=== PATIENT | female | born 2000 | race Caucasian/White ===

== ENCOUNTER 2021-02-11 21:11 | Observation (INO) ==
[2021-02-11] MEDS ORDERED: LORazepam 0.5 MG/1 ML VIAL IV STA (21:34)
[2021-02-11] MEDS ORDERED: SODIUM CHLORIDE 0.9% 1000ML 1,000 ML IV ONE (21:34)
[2021-02-11] MEDS ORDERED: KETOROLAC TROMETHAMINE 15 MG/ML VIAL IV STA (21:34)
[2021-02-11] MEDS ORDERED: ERTAPENEM SODIUM 10 ML IV STA (21:34)
[2021-02-11] MEDS ORDERED: ONDANSETRON INJ 2 MG/ML 2 ML VIAL IV STA (21:34)
[2021-02-11] MEDS ORDERED: MoRPHine SULFATE 4 MG/ML 1 ML CARP\\VIAL IV STA (21:34)
--- NOTE | 2021-02-11 21:42 | Emergency Department Note ---
Impression & Plan Acute right flank pain, Pyelonephritis, Failure of outpatient treatment, Anxiety ED Provider Note NAME: HAILEE PEREZ AGE: 20 SEX: F : 2000 ARRIVES VIA: Ambulance INFORMANT: [Patient] ED PROVIDER(S): [Cruz Murrell MD] CHIEF COMPLAINT: Abdominal and flank pain HISTORY OF PRESENT ILLNESS: The patient is a 20-year-old female with history of resistant UTI. She has a history of bladder exstrophy. The patient has been having urinary symptoms for a month. She took Keflex but did not get much better. She has progressed to having flank pain. For 5 days, she has had right flank discomfort. She was seen in the ED early in the morning today and was found to still have a UTI. She was given ceftriaxone and placed on Omnicef. The patient pretty much slept all day. She did not wake up and seemed lethargic to her roommates. The ambulance was called. The patient is now awake. She has tingling in her fingers. She has right flank pain that is an 8 on a scale 1 out of 10. She still has urinary symptoms and burning. There has been no cough, no congestion or shortness of breath. She is not vaccinated against COVID-[address]. [address] of the abdomen pelvis was essentially unremarkable except for bladder thickening, no hydronephrosis. Looking back at her urine culture from the , 3 days ago, E. coli grew, it was resistant to ceftriaxone, Keflex and Omnicef. REVIEW OF SYSTEMS: See HPI for pertinent positives and negatives. A total of ten systems were reviewed and were otherwise negative. PMHx/PSHx: See Below SOCIAL HISTORY: See Below. PHYSICAL EXAM: GENERAL: Patient is in moderate distress, quite anxious and somewhat tearful. HEENT: No acute trauma, normocephalic atraumatic, mucous membranes moist, no nasal congestion, no scleral icterus. NECK: No stridor, no adenopathy, no meningismus, trachea is midline. LUNGS: Clear to auscultation bilaterally, no wheeze, no rhonchi, breath sounds equal. Hyperventilating. HEART: Mildly tachycardic, regular rhythm, subtle systolic murmur. ABDOMEN: Soft, somewhat tender in the right abdomen, bowel sounds positive, no hernias, no peritonitis. EXTREMITIES: No cyanosis or edema, full range of motion of all the joints without pain or difficulty, no signs for acute trauma. NEUROLOGIC: Oriented x 3, no acute motor or sensory deficits, no focal weakness. SKIN: No rash, no jaundice, no diaphoresis. DIFFERENTIAL DIAGNOSIS: Appendicitis, ovarian cyst, ovarian torsion, ectopic , TOA, PID, infections, diverticulitis, UTI, pyelonephritis, failed outpatient treatment, resistant UTI, obstruction, mesenteric ischemia, aortic pathology, inflammatory bowel disease, renal colic, PUD, pancreatitis, biliary pathology, hernia, volvulus, constipation, as well as other pathologies. EMERGENCY DEPARTMENT COURSE/PROCEDURES: MEDICAL DECISION MAKING: There is no leukocytosis or concerning anemia. There is a normal platelet count. No significant electrolyte abnormality or kidney failure. No worrisome liver enzyme elevation. testing was negative. Covid testing was negative. Urine culture from a few days ago grew out a resistant E. coli. The ceftriaxone, Keflex and Omnicef that she had received or been prescribed will not be effective. Patient has a history of UTI. She has had symptoms for over a month. She now has right flank pain and has a somewhat resistant UTI. She appears to have a pyelonephritis. I do think IV antibiotic therapy and hospitalization is required. The patient was given IV saline, she received IV Toradol, IV morphine, IV Ativan and IV Zofran. She was given IV ertapenem. She feels improved. I spoke to the patient and case management. The on-call hospitalist has been consulted. Past Med/Surg History Medical History History of exstrophy of bladder Recurrent UTI Social History Smoking Status: Never smoker Preferred Language: Bulgarian Feels Safe at Home: Yes Allergies Allergies Allergy/AdvReac Type Severity Reaction Status Date / Time ciprofloxacin Allergy Severe Numbness Verified 02/11/21 22:03 latex Allergy Intermediate Rash Verified 02/11/21 22:03 Home Meds Home Medications Medication Instructions Recorded Confirmed ascorbic acid (vitamin C) 300 mg 900 mg PO DAILY 02/10/21 02/11/21 chewable tablet duloxetine 1 tab PO DAILY 02/10/21 02/11/21 ferrous sulfate 325 mg (65 mg 325 mg PO DAILY 02/10/21 02/11/21 iron) tablet (iron) lamotrigine 200 mg tablet 200 mg PO HS 02/10/21 02/11/21 (Lamictal) norethindrone 1.5 mg-ethinyl 1 tab PO HS 02/10/21 02/11/21 estradiol 30 mcg(21)/iron 75 mg(7) tablet (Junel FE 1.5/30 (28)) Previous Rx's Medication Instructions Recorded cefdinir 300 mg capsule 300 mg PO BID 10 Days #20 cap 02/11/21 ondansetron 4 mg disintegrating 4 mg PO Q6H PRN #15 tab 02/11/21 tablet Results & Data (ED) Vital Signs Vital Signs - 24 hr 02/11/21 21:34 02/11/21 22:08 02/11/21 22:16 Temperature 37.4 C Temperature Source Oral Pulse Rate 69 Pulse Rate [Finger] 62 Pulse Rate from SpO2 Sensor 67 Pulse Rhythm [Finger] Regular Respiratory Rate 23 Respiratory Effort / Characteristics Non-Labored Respiratory Depth Normal Respiratory Pattern Regular Blood Pressure 123/81 Blood Pressure [Right Arm] 146/114 H 123/81 Blood Pressure Mean 95 Blood Pressure Mean [Right Arm] 124 95 Blood Pressure Position [Right Arm] Lying Pulse Oximetry 97 96 Oxygen Delivery Method Room Air Sepsis Recent Fever Within 48 Hours Sepsis New/Unexplained Change in Mental Status Sepsis Action Taken by Nursing 02/11/21 22:56 02/11/21 23:25 Temperature 36.7 C Temperature Source Oral Pulse Rate 61 Pulse Rate [Finger] 63 Pulse Rate from SpO2 Sensor Pulse Rhythm [Finger] Respiratory Rate 18 14 Respiratory Effort / Characteristics Non-Labored Respiratory Depth Normal Respiratory Pattern Blood Pressure 123/81 Blood Pressure [Right Arm] 116/87 Blood Pressure Mean 95 Blood Pressure Mean [Right Arm] 96 Blood Pressure Position [Right Arm] Pulse Oximetry 99 98 Oxygen Delivery Method Room Air Room Air Sepsis Recent Fever Within 48 Hours Yes Sepsis New/Unexplained Change in Mental Status N/A Sepsis Action Taken by Nursing No Action Required Home Medications Current Medication List: was personally reviewed by me Laboratory Data Attestation: I reviewed the patient's lab results. Result diagrams: 02/11/21 21:30 02/11/21 21:30 Lab Results 02/11/21 02/11/21 02/11/21 Range/Units 21:30 21:30 21:30 WBC 5.50 (4.8-10.8) K/uL RBC 4.51 (4.2-5.4) M/uL Hgb 13.5 (12.0-16.0) g/dL Hct 40.5 (37-47) % MCV 89.8 (80-100) fL MCH 29.9 (25-34) pg MCHC 33.3 (32-36) g/dL RDW Std Deviation 42.7 (36.4-46.3) fL RDW Coeff of Juan M 13.0 (11.5-14.5) % Plt Count 307 (130-400) K/uL MPV 10.9 H (7.4-10.4) fL Immature Gran % (Auto) 0.2 % Neut % (Auto) 41.3 % Lymph % (Auto) 49.1 % [place] % (Auto) 7.8 % Eos % (Auto) 0.9 % Baso % (Auto) 0.7 % Neut # (Auto) 2.27 (1.4-6.5) K/uL Lymph # (Auto) 2.70 (1.2-3.4) K/uL [place] # (Auto) 0.43 (0.11-0.59) K/uL Eos # (Auto) 0.05 (0-0.5) K/uL Baso # (Auto) 0.04 (0-0.2) K/uL Immature Gran # (Auto) 0.01 (0.00-0.02) K/uL Sodium 141 (136-145) mmol/L Potassium 3.7 (3.5-5.1) mmol/L Chloride 112 H (98-107) mmol/L Carbon Dioxide 24 (21-32) mmol/L Anion Gap 5.0 (3-11) BUN 6 L (7-18) mg/dl Creatinine 0.88 (0.6-1.2) mg/dl Est Cr Clr Drug Dosing Not Reportable Est GFR ( Amer) 108.9 ml/min Est GFR (Non-Af Amer) 93.9 ml/min BUN/Creatinine Ratio 7.1 L (10-20) Glucose 88 (70-99) mg/dl Calcium 9.1 (8.5-10.1) mg/dl Total Bilirubin 0.5 (0.2-1) mg/dl AST 9 L (15-37) U/L ALT 16 (12-78) U/L Alkaline Phosphatase 58 (45-117) U/L Total Protein 7.4 (6.4-8.2) gm/dl Albumin 3.7 (3.4-5.0) gm/dl Globulin 3.7 (2.5-4.0) gm/dl Albumin/Globulin Ratio 1.0 (0.9-2) HCG, Qual Negative (Negative) COVID-19 Eval Order SARS-CoV-2 (PCR) (Negative) 02/11/21 02/11/21 Range/Units 22:21 22:21 WBC (4.8-10.8) K/uL RBC (4.2-5.4) M/uL Hgb (12.0-16.0) g/dL Hct (37-47) % MCV (80-100) fL MCH (25-34) pg MCHC (32-36) g/dL RDW Std Deviation (36.4-46.3) fL RDW Coeff of Juan M (11.5-14.5) % Plt Count (130-400) K/uL MPV (7.4-10.4) fL Immature Gran % (Auto) % Neut % (Auto) % Lymph % (Auto) % [place] % (Auto) % Eos % (Auto) % Baso % (Auto) % Neut # (Auto) (1.4-6.5) K/uL Lymph # (Auto) (1.2-3.4) K/uL [place] # (Auto) (0.11-0.59) K/uL Eos # (Auto) (0-0.5) K/uL Baso # (Auto) (0-0.2) K/uL Immature Gran # (Auto) (0.00-0.02) K/uL Sodium (136-145) mmol/L Potassium (3.5-5.1) mmol/L Chloride (98-107) mmol/L Carbon Dioxide (21-32) mmol/L Anion Gap (3-11) BUN (7-18) mg/dl Creatinine (0.6-1.2) mg/dl Est Cr Clr Drug Dosing Est GFR ( Amer) ml/min Est GFR (Non-Af Amer) ml/min BUN/Creatinine Ratio (10-20) Glucose (70-99) mg/dl Calcium (8.5-10.1) mg/dl Total Bilirubin (0.2-1) mg/dl AST (15-37) U/L ALT (12-78) U/L Alkaline Phosphatase (45-117) U/L Total Protein (6.4-8.2) gm/dl Albumin (3.4-5.0) gm/dl Globulin (2.5-4.0) gm/dl Albumin/Globulin Ratio (0.9-2) HCG, Qual (Negative) COVID-19 Eval Order Covid19 at [facility] SARS-CoV-2 (PCR) NEGATIVE (Negative) Administered Medications Discontinued Medications Ertapenem (Invanz) 10 mls @ 2 mls/min IV NOW STA Stop: 02/11/21 21:38 Last Admin: 02/11/21 22:40 Dose: 2 mls/min Documented by: [id number] Sodium Chloride (Nss 1000ml) 1,000 mls @ 999 mls/hr IV .Q1H1M ONE Stop: 02/11/21 22:34 Last Infusion: 02/11/21 23:18 Dose: 0 mls/hr Documented by: [id number] Admin: 02/11/21 21:43 Dose: 999 mls/hr Documented by: [id number] Lorazepam (Ativan) 0.5 mg in 1 mls @ 1 mls/min IV NOW STA Stop: 02/11/21 21:35 Last Admin: 02/11/21 21:48 Dose: 1 mls/min Documented by: [id number] Ketorolac Tromethamine (Ketorolac Tromethamine 15 Mg/Ml Vial) 15 mg IV NOW STA Stop: 02/11/21 21:35 Last Admin: 02/11/21 21:48 Dose: 15 mg Documented by: [id number] Morphine Sulfate (Morphine Sulfate 4 Mg/Ml 1 Ml Carp\Vial) 4 mg IV NOW STA Stop: 02/11/21 21:35 Last Admin: 02/11/21 21:49 Dose: 4 mg Documented by: [id number] Ondansetron HCl (Ondansetron Inj 2 Mg/Ml 2 Ml Vial) 4 mg IV NOW STA Stop: 02/11/21 21:35 Last Admin: 02/11/21 21:48 Dose: 4 mg Documented by: [id number] Discharge Plan Visit Data Chief Complaint: Abdominal Pain ED Provider: Cruz Murrell Discharge Problem: Acute right flank pain, Pyelonephritis, Failure of outpatient treatment, Anxiety Patient Disposition: Admitted As Inpatient Condition: Fair Forms Stand Alone Forms: [facility] Prescriptions Prescriptions: No Action Vitamin C 300 mg Tablet,Chewable 900 mg PO DAILY RF: 0 norethindrone-e.estradiol-iron [Junel FE 1.5/30 (28)] 1.5 mg-30 mcg (21)/75 mg (7) Tablet 1 tab PO HS RF: 0 lamotrigine [Lamictal] 200 mg Tablet 200 mg PO HS RF: 0 ferrous sulfate [iron] 325 mg (65 mg iron) Tablet 325 mg PO DAILY RF: 0 duloxetine 1 tab PO DAILY RF: 0 cefdinir 300 mg capsule 300 mg PO BID 10 Days Qty: 20 RF: 0 ondansetron 4 mg tablet,disintegrating 4 mg PO Q6H PRN (Reason: nausea and vomiting) Qty: 15 RF: 0 Referrals Referrals: PCP,NO [Physician] -
[2021-02-11 21:51] LABS: Basophils # (auto) 0.04 K/uL (0-0.2); Basophils % (auto) 0.7 %; Eosinophils # (auto) 0.05 K/uL (0-0.5); Eosinophils % (auto) 0.9 %; Hematocrit (blood only) 40.5 % (37-47); Hemoglobin 13.5 g/dL (12.0-16.0); Immature Granulocytes # (auto) 0.01 K/uL (0.00-0.02); Immature Granulocytes % (auto) 0.2 %; Lymphocytes % (auto) 49.1 %; Mean Corpuscular Hemoglobin 29.9 pg (25-34); Mean Corpuscular Hgb Conc 33.3 g/dL (32-36); Mean Corpuscular Volume 89.8 fL (80-100); Mean Platelet Volume 10.9 fL (7.4-10.4); Monocytes # (auto) 0.43 K/uL (0.11-0.59); Monocytes % (auto) 7.8 %; Neutrophils # (auto) 2.27 K/uL (1.4-6.5); Neutrophils % (auto) 41.3 %; Platelet Count 307 K/uL (130-400); RDW Standard Deviation 42.7 fL (36.4-46.3); Red Blood Count 4.51 M/uL (4.2-5.4)
[2021-02-11 22:09] LABS: Alanine Aminotransferase 16 U/L (12-78); Albumin Level 3.7 gm/dl (3.4-5.0); Aspartate Aminotransferase 9 U/L (15-37); BUN Creatinine Ratio 7.1 (10-20); Blood Urea Nitrogen 6 mg/dl (7-18); Calcium 9.1 mg/dl (8.5-10.1); Carbon Dioxide 24 mmol/L (21-32); Chloride 112 mmol/L (98-107); Est GFR (African American) 108.9 ml/min; Est GFR (Non-African American) 93.9 ml/min; Glucose 88 mg/dl (70-99); Potassium 3.7 mmol/L (3.5-5.1); Sodium 141 mmol/L (136-145)
[2021-02-11 22:12] LABS: Alkaline Phosphatase 58 U/L (45-117); Bilirubin,Total 0.5 mg/dl (0.2-1); Globulin 3.7 gm/dl (2.5-4.0); Pregnancy Test, Serum Negative (Negative); Total Protein 7.4 gm/dl (6.4-8.2)
--- NOTE | 2021-02-11 23:11 | History & Physical Report ---
Date of Service February 11, 2021 Assessment & Plan (1) E. coli UTI (urinary tract infection): Plan: Multidrug-resistant E. coli UTI/recurrent urine tract infections/bladder exstrophy/failure of outpatient treatment- Hold Omnicef Continue ertapenem 1 g IV daily begun in ED NSS + KCl 20 mEq at 100 mils per hour Acetaminophen 650 mg p.o. every 6 hours as needed (2) Infection with multi-drug resistant microorganisms: Plan: Patient is allergic to Cipro and all fluoroquinolones She reports having been on nitrofurantoin for prophylaxis when younger. She reports briefly being on Bactrim for prophylaxis when younger Oral Bactrim would likely be a good option for treatment upon discharge (3) Pyelonephritis: Plan: See above (4) Anxiety: Plan: Continue duloxetine and lamotrigine (5) Failure of outpatient treatment: Plan: See above (6) Recurrent UTI: Plan: See above (7) History of exstrophy of bladder: Plan: See above History of Present Illness Chief Complaint: The patient is brought to the emergency department after her roommates felt she was lethargic and unable to wake up from sleep after visiting the ED the previous evening Primary Care Provider: [facility] The patient is a 20-year-old female with a past medical history including bladder exstrophy, recurrent urinary tract infections, and anxiety, who was initially seen at [facility] and had urinalysis sent to the hospital on 02/08/2021. She presented to the emergency department last evening and was given ceftriaxone IV and discharged on Omnicef. Her roommates became concerned when she was unable to wake up after sleeping all day, and appeared lethargic, and patient was brought to the ED by ambulance for further assessment. Allergies Allergy/AdvReac Type Severity Reaction Status Date / Time ciprofloxacin Allergy Severe Numbness Verified 02/11/21 22:03 latex Allergy Intermediate Rash Verified 02/11/21 22:03 Home Medications Medication Instructions Recorded Confirmed Type ascorbic acid (vitamin C) 300 mg 900 mg PO DAILY 02/10/21 02/11/21 History chewable tablet duloxetine 1 tab PO DAILY 02/10/21 02/11/21 History ferrous sulfate 325 mg (65 mg 325 mg PO DAILY 02/10/21 02/11/21 History iron) tablet (iron) lamotrigine 200 mg tablet 200 mg PO HS 02/10/21 02/11/21 History (Lamictal) norethindrone 1.5 mg-ethinyl 1 tab PO HS 02/10/21 02/11/21 History estradiol 30 mcg(21)/iron 75 mg(7) tablet (Junel FE (28)) cefdinir 300 mg capsule 300 mg PO BID 10 Days #20 cap 02/11/21 02/11/21 Rx ondansetron 4 mg disintegrating 4 mg PO Q6H PRN #15 tab 02/11/21 02/11/21 Rx tablet Past Med/Surg History Medical History (Updated 02/12/21 @ 00:22 by Nile Farrell MD) History of exstrophy of bladder Recurrent UTI Social History Smoking Status: Never smoker Preferred Language: Latvian Feels Safe at Home: Yes Review of Systems 2 Review of Systems: The patient denies chest pain, palpitations, shortness of breath, dyspnea on exertion, cough, lower extremity swelling, sore throat, fevers, chills, sweats, vomiting, diarrhea, constipation, abdominal pain, blood in urine or stool, lightheadedness, dizziness, headache, memory loss, loss of consciousness, rash, abnormal bruising or bleeding, imbalance, focal weakness, numbness or tingling in arms or legs, neck pain, or night sweats. The review of systems is otherwise negative other than for that already noted above, and at least 10 systems have been reviewed. Physical Exam Physical Exam: The patient is awake, alert and oriented 3, well developed and well nourished, normocephalic and atraumatic, lying in bed and in no acute distress. HEENT--PERRL, EOMI, mucous membranes and oropharynx mildly dry Neck--supple. No JVD. No bruits. Thyroid normal, trachea midline, no adenopathy. Heart--normal S1 and S2. No murmurs, rubs or gallops. Lungs--clear bilaterally, no respiratory distress, no accessory muscle use. Abdomen--normal bowel sounds and soft. Nontender. Nondistended, no hernias or masses, no organomegaly. Extremities--no cyanosis or clubbing. No edema. Dermatologic--normal skin turgor, normal color, no abnormal lymph nodes, no rash. Neurologic--cranial nerves II through XII grossly intact. Rheumatologic--normal range of motion. Psychiatric--normal affect. Results & Data Results & Data ([facility]) Vital Signs (Past 12 Hours) Vital Signs Temp Pulse Pulse Resp BP BP Pulse Ox 02/11/21 22:56 98.1 F 61 18 123/81 99 02/11/21 22:16 99.3 F 62 123/81 96 02/11/21 21:34 146/114 H Laboratory Results Laboratory Results WBC 5.50 K/uL (4.8-10.8) 02/11/21 21:30 RBC 4.51 M/uL (4.2-5.4) 02/11/21 21:30 Hgb 13.5 g/dL (12.0-16.0) 02/11/21 21:30 Hct 40.5 % (37-47) 02/11/21 21:30 MCV 89.8 fL (80-100) 02/11/21 21:30 MCH 29.9 pg (25-34) 02/11/21 21:30 MCHC 33.3 g/dL (32-36) 02/11/21 21:30 RDW Std Deviation 42.7 fL (36.4-46.3) 02/11/21 21:30 RDW Coeff of Juan M 13.0 % (11.5-14.5) 02/11/21 21:30 Plt Count 307 K/uL (130-400) 02/11/21 21:30 MPV 10.9 fL (7.4-10.4) H 02/11/21 21:30 Immature Gran % (Auto) 0.2 % 02/11/21 21:30 Neut % (Auto) 41.3 % 02/11/21 21:30 Lymph % (Auto) 49.1 % 02/11/21 21:30 [place] % (Auto) 7.8 % 02/11/21 21:30 Eos % (Auto) 0.9 % 02/11/21 21:30 Baso % (Auto) 0.7 % 02/11/21 21:30 Neut # (Auto) 2.27 K/uL (1.4-6.5) 02/11/21 21:30 Lymph # (Auto) 2.70 K/uL (1.2-3.4) 02/11/21 21:30 [place] # (Auto) 0.43 K/uL (0.11-0.59) 02/11/21 21:30 Eos # (Auto) 0.05 K/uL (0-0.5) 02/11/21 21:30 Baso # (Auto) 0.04 K/uL (0-0.2) 02/11/21 21:30 Immature Gran # (Auto) 0.01 K/uL (0.00-0.02) 02/11/21 21:30 Sodium 141 mmol/L (136-145) 02/11/21 21:30 Potassium 3.7 mmol/L (3.5-5.1) 02/11/21:30 Chloride 112 mmol/L (98-107) H 02/11/21 21:30 Carbon Dioxide 24 mmol/L (21-32) 02/11/21 21:30 Anion Gap 5.0 (3-11) 02/11/21 21:30 BUN 6 mg/dl (7-18) L 02/11/21 21:30 Creatinine 0.88 mg/dl (0.6-1.2) 02/11/21 21:30 Est Cr Clr Drug Dosing Not Reportable 02/11/21 21:30 Est GFR ( Amer) 108.9 ml/min 02/11/21 21:30 Est GFR (Non-Af Amer) 93.9 ml/min 02/11/21 21:30 BUN/Creatinine Ratio 7.1 (10-20) L 02/11/21 21:30 Glucose 88 mg/dl (70-99) 02/11/21 21:30 Calcium 9.1 mg/dl (8.5-10.1) 02/11/21 21:30 Total Bilirubin 0.5 mg/dl (0.2-1) 02/11/21 21:30 AST 9 U/L (15-37) L 02/11/21 21:30 ALT 16 U/L (12-78) 02/11/21 21:30 Alkaline Phosphatase 58 U/L (45-117) 02/11/21 21:30 Total Protein 7.4 gm/dl (6.4-8.2) 02/11/21:30 Albumin 3.7 gm/dl (3.4-5.0) 02/11/21 21:30 Globulin 3.7 gm/dl (2.5-4.0) 02/11/21 21:30 Albumin/Globulin Ratio 1.0 (0.9-2) 02/11/21 21:30 HCG, Qual Negative (Negative) 02/11/21 21:30 COVID-19 Eval Order Covid19 at [facility] 02/11/21 22:21 SARS-CoV-2 (PCR) NEGATIVE (Negative) 02/11/21 22:21 Diagnostic Findings [facility], [id number] CT Scan Report Patient: HAILEE PEREZ Date: 02/10/21#: [id number]: [address]Acct ID:[id number]: [facility]: 2000[facility] Zip[facility] [place], [place] [address]Gwe: 20Location: EDSex: FRoom/Bed:Att Phy:Diagnosis: URINARY SYMPTOMS, VOMITINGPri Phy: PCP,NOService Date: 02/10/21Fam Phy:Interpreting Phy: Rafiq Covarrubias MDAdmit Phy: Ordering Phy: Nikole Montez PA-C cc: ~ ABDOMEN AND PELVIS CT WITH IV CONTRAST CT DOSE: 354.70 mGy.cm HISTORY: flank pain, uti sxs TECHNIQUE: Multiaxial CT images of the abdomen and pelvis were performed following the use of intravenous contrast. A dose lowering technique was utilized adhering to the principles of ALARA. COMPARISON STUDY: None. FINDINGS: The lung bases are clear. No pneumoperitoneum. No pneumatosis. Diastases of the symphysis pubis measuring up to 5.4 cm. This may be developmental. No fractures within the visualized osseous structures. Bladder wall thickening with adjacent fat stranding. This likely represents a cystitis. The uterus and bilateral adnexa are within normal limits. No pelvic free fluid. A few sigmoid diverticula. No evidence for acute diverticulitis. No bowel wall thickening or obstruction. The visualized appendix is normal in caliber. The liver, gallbladder, spleen, adrenal glands, pancreas, and kidneys are unremark able. No perinephric edema or hydronephrosis. No ureteral stones. No retroperitoneal lymphadenopathy. Normal caliber abdominal aorta. The main portal vein is patent. IMPRESSION: 1. Bladder wall thickening with adjacent fat stranding. This likely represents a cystitis. Recommend correlation with urinalysis. 2. No bowel wall thickening or obstruction. 3. Normal appendix. 4. No hydronephrosis. 5. Diastases of the symphysis pubis which may be developmental. ACT 112: Negative or not required by law. Electronically signed by: Rafiq Covarrubias M.D. 02/11/2021 8:20 AM Dictated: 02/11/21 0816 Code Status & VTE Plan Code Status Full code VTE Prophylaxis Plan VTE Prophylaxis will be ordered: Yes PG Care Time/CCT Total # of Minutes Spent Total Time Spent with Patient: Total time spent is greater than 50% in coordination of care (as documented) at patient's floor/unit and/or counseling patient: Coding Level of Care Code INT OBSERVATION CARE 70M LVL 3 Diagnoses E. coli UTI (urinary tract infection) N39.0; B96.20 Infection with multi-drug resistant microorganisms Pyelonephritis N12 Anxiety F41.9 Failure of outpatient treatment Z78.9 Recurrent UTI N39.0 History of exstrophy of bladder Z87.448
[2021-02-12] MEDS ORDERED: PROMETHAZINE 6.25 MG/50.25 ML BAG IV STA (00:35)
[2021-02-12] MEDS ORDERED: MoRPHine SULFATE 4 MG/ML 1 ML CARP\\VIAL IV STA (00:35)
[2021-02-12] MEDS ORDERED: ACETAMINOPHEN 325 MG TAB PO PRN (01:51)
[2021-02-12] MEDS ORDERED: ONDANSETRON INJ 2 MG/ML 2 ML VIAL IV PRN (01:51)
[2021-02-12] MEDS ORDERED: ONDANSETRON 4 MG OD TAB PO PRN (02:23)
[2021-02-12] MEDS: NSS + 20MEQ KCL 20 MEQ/1,000 ML BAG IV SCH ×3 (02:30→23:26)
[2021-02-12] MEDS: DULoxetine HCL 20 MG CAP PO SCH ×2 (02:58→08:51)
[2021-02-12] MEDS: ASCORBIC ACID 500 MG TAB PO SCH ×2 (02:58→08:51)
[2021-02-12] MEDS: FERROUS SULFATE 325 MG TAB PO SCH ×2 (02:58→08:52)
[2021-02-12] MEDS: lamoTRIgine 100 MG TAB PO SCH ×2 (03:02→21:34)
--- NOTE | 2021-02-12 08:15 | Hospitalist Progress Note ---
Date of Service February 12, 2021 Assessment & Plan (1) E. coli UTI (urinary tract infection): Plan: Unconvincing UTI no pyuria noted; given known anatomic abnormality uncertain if significant However, possiblebenefit of doubt; continue ertapenem pending cultures; there are oral agents to which last E. coli was sensitive She does not feel ready for discharge today Gram-negative rods in urine noted (2) Pyelonephritis: Plan: See abovenot quite multidrug resistance other than typical beta-lactams good sensitivity pattern (3) Anxiety: Plan: Continue duloxetine and lamotrigine (4) Failure of outpatient treatment: Plan: See above (5) Recurrent UTI: Plan: See above (6) History of exstrophy of bladder: Plan: Should see urology as outpatient; suppressive therapy reasonable Admission and Anticipated Discharge Date Admission Date: February 11, 2021 Subjective Follow-up of presentation with lethargy; Complaints include bilateral flank area pain, vomiting yesterday, could not be woken upoverall feels better On direct questioning dysuria; apparent low-grade fever in ambulance Physical Exam Physical Exam: Constitutional and general: No acute distress, looks biologic age Head and face: No puffiness, atraumatic Eyes: No scleral icterus, extraocular movements normal Neck: Supple, no JVD Musculoskeletal: No acute joint swelling, no bony abnormalities Skin/dermatologic/integument: No rash, no purpura Hematologic and lymphatic: pallor none, no petechia Gastrointestinal/abdomen: Nondistended, soft, nonacute Neurologic: Cranial nerves intact, nonfocal Psychiatry: Awake, alert, pleasant, communicative Cardiovascular: Heart rhythm regular, no rub, no murmur, no gallop Respiratory: Chest movements equal, no use of accessory muscles, no adventitious sounds Extremities: No edema, no cyanosis Superficial tenderness flank right side more Results & Data Results & Data ([facility]) Vital Signs (Past 12 Hours) Vital Signs Temp Pulse Pulse Resp BP BP Pulse Ox 02/12/21 07:30 36.9 C 58 L 16 99/63 L 97 02/12/21 01:15 36.7 C 72 20 126/86 98 02/12/21 01:00 16 98 02/12/21 00:26 73 16 107/84 98 02/11/21 23:25 63 14 116/87 98 02/11/21 22:56 36.7 C 61 18 123/81 99 02/11/21 22:16 37.4 C 62 123/81 96 02/11/21 22:08 69 23 123/81 97 02/11/21 21:34 146/114 H PG Care Time/CCT Total # of Minutes Spent Total Time Spent with Patient: Total time spent is greater than 50% in coordination of care (as documented) at patient's floor/unit and/or counseling patient: Coding Level of Care Code 66979 Subseq Obs Care Lvl 2 Diagnoses E. coli UTI (urinary tract infection) N39.0; B96.20 Pyelonephritis N12 Anxiety F41.9 Failure of outpatient treatment Z78.9 Recurrent UTI N39.0 History of exstrophy of bladder Z87.448
[2021-02-12] MEDS ORDERED: FERROUS SULFATE 325 MG TAB PO SCH ×2 (09:00→21:00)
[2021-02-12] MEDS ORDERED: ASCORBIC ACID 500 MG TAB PO SCH ×2 (09:00→21:00)
[2021-02-12] MEDS ORDERED: DULoxetine HCL 20 MG CAP PO SCH ×2 (09:00→21:00)
[2021-02-12] MEDS ORDERED: Nursing to Pharmacy Communication SCH (09:15)
[2021-02-12] MEDS: KETOROLAC 30 MG/ML VIAL IV PRN ×3 (09:38→23:26)
[2021-02-12] MEDS ORDERED: OXYBUTYNIN CHLORIDE XL 5 MG TABCR PO ONE (19:35)
--- NOTE | 2021-02-12 19:37 | Communication Note ---
Date of Service: February 12, 2021 Notified by nursing that patient has complaints of severe bladder spasm. Patient notes that she typically takes 10mg oxybutynin for her symptoms as recommended when she was seen at [facility]. Patient's mother has a bottle of oxybutynin, but none is currently ordered here. -Will order for 1x dose of Oxybutynin 10mg ER -If helpful, would consider adding onto patients treatment regiment PRN Resident Activity Tracking Resident Involvement: Resident Care Provided and Syrup Maker Coverage Note Care Provided: Adult Hospital Medicine
[2021-02-12] MEDS ORDERED: lamoTRIgine 100 MG TAB PO SCH (21:00)
[2021-02-12] MEDS ORDERED: ERTAPENEM SODIUM 1,000 MG in SODIUM CHLORIDE 0.9% 50 ML IV SCH (22:00)
[2021-02-13 07:46] VITALS: BP 100/66; PULSE 60; TEMP 97.7; O2SAT 95
--- NOTE | 2021-02-13 09:54 | Discharge Summary ---
Date of Service February 13, 2021 Admission HPI Per Admitting Provider The patient is a 20-year-old female with a past medical history including bladder exstrophy, recurrent urinary tract infections, and anxiety, who was initially seen at [facility] and had urinalysis sent to the hospital on 02/08/2021. She presented to the emergency department last evening and was given ceftriaxone IV and discharged on Omnicef. Her roommates became concerned when she was unable to wake up after sleeping all day, and appeared lethargic, and patient was brought to the ED by ambulance for further assessment. Specialty Data Hospitalist Vitals; blood pressure 100 x 66, temperature 36.5, respiration 14, pulse 60 No acute distress Chest clear Abdomen benign Heart regular Discharge Data Consultations 02/11/21 22:43 ED Decision to Admit Stat Hospital Course (1) E. coli UTI (urinary tract infection): Possible UTI; switch to nitrofurantoinorganism sensitive as ascertained by calling lab; cannot rule out simply colonization but treatbenefit of doubt; if UTI, would qualify as complicated cystitis; mother thinks this is definitely symptomatic UTIwill respect same (2) Anxiety: Continue duloxetine and lamotrigine (3) Recurrent UTI: See abovelong history of same; discussion with mother; she is followed at [facility] and will follow up with urology there; discussed regarding prophylactic treatment and they will discuss with team at [place] (4) History of exstrophy of bladder: See above Coding Level of Care Code D/C DAY MANAGEMENT >30 MINS Diagnoses E. coli UTI (urinary tract infection) N39.0; B96.20 Anxiety F41.9 Recurrent UTI N39.0 History of exstrophy of bladder Z87.448 Time Spent (min) 35
[2021-02-13] MEDS ORDERED: NITROFURANTOIN MONOHYDRATE 100 MG CAP PO SCH (10:00)
[2021-02-14 11:16] LABS: EBV Nuclear Ag Antibody <18.00 U/mL; EBV Virus Capsid Ag IgG Ab <18.00 U/mL; Epstein Barr Virus Early Ag Ab <9.00 U/mL
== END 2021-02-13 11:40 | disposition home or self-care (01) ==
LOC: 3E 21:11 → ED 21:11 → SUATTDRO 23:10 → 3E 02-12 01:42
DX: B96.20 Unspecified Escherichia coli [E. coli] as the cause of diseases classified elsewhere; Z88.1 Allergy status to other antibiotic agents; Z91.040 Latex allergy status; Z79.899 Other long term (current) drug therapy; Z87.448 Personal history of other diseases of urinary system; N39.0 Urinary tract infection, site not specified; N12 Tubulo-interstitial nephritis, not specified as acute or chronic; Z20.822 Contact with and (suspected) exposure to COVID-19

== ENCOUNTER 2022-07-09 15:29 | Inpatient (IN) ==
[2022-07-09] MEDS ORDERED: SODIUM CHLORIDE 0.9% 1000ML 1,000 ML IV ONE (16:57)
[2022-07-09] MEDS ORDERED: cefTRIAXone SODIUM 2,000 MG/70 ML BAG IV STA (16:57)
--- NOTE | 2022-07-09 17:14 | Emergency Department Note ---
Impression & Plan Bilateral flank pain, Pyelonephritis, Failure of outpatient treatment ED Provider Note NAME: HAILEE PEREZ AGE: 22 SEX: F : 2000 ARRIVES VIA: Walk-In INFORMANT: [Patient] ED PROVIDER(S): [Cruz Murrell MD] CHIEF COMPLAINT: Referred by physician HISTORY OF PRESENT ILLNESS: The patient is a 22-year-old female with a history of pyelonephritis. She has had bladder exstrophy surgery in 2016. Occasionally, she needs to self cath. In early June, 3 weeks ago, she had urinary symptoms. She was placed on Bactrim and things seemed to be better for a day or so and then the symptoms returned. She was placed back on Bactrim. As she was not getting that much better, she presented to the ER on 02 July, 1 week ago. She was given IV cefepime and continued on the Bactrim. The culture from this hospital grew Proteus that was resistant to Bactrim. She was called to have her antibiotics changed to cefdinir however, she had already been switched to Augmentin by her primary doctor. The patient states that despite the Augmentin, she feels worse. She has had 24 hours of nausea, headache and some mid abdominal pain. She has no appetite. She has bilateral flank pain worse on the left. She was told to come today to the hospital for admission and IV antibiotic therapy. PMHx/PSHx: See Below SOCIAL HISTORY: See Below. PHYSICAL EXAM: GENERAL: Patient is in no acute distress. HEENT: No acute trauma, normocephalic atraumatic, mucous membranes moist, no nasal congestion. NECK: No stridor, no adenopathy, no meningismus, trachea is midline. LUNGS: Clear to auscultation bilaterally, no wheeze, no rhonchi, breath sounds equal. HEART: Without murmurs gallops or rubs, regular rate and rhythm. ABDOMEN: Soft, nontender, bowel sounds positive, no peritonitis. EXTREMITIES: No cyanosis or edema, full range of motion of all the joints without pain or difficulty, no signs for acute trauma. NEUROLOGIC: Oriented x 3, no acute motor or sensory deficits, no focal weakness. SKIN: No rash, no jaundice, no diaphoresis. Back: Left more so than right flank discomfort to percussion. DIFFERENTIAL DIAGNOSIS: Renal colic, UTI, pyelonephritis, hydronephrosis, dehydration, renal failure, failed outpatient management, among others. EMERGENCY DEPARTMENT COURSE/PROCEDURES: Prior/Outside records reviewed: Previous ED visit, culture results. MEDICAL DECISION MAKING: There is no leukocytosis or concerning anemia. There is a normal platelet count. No renal failure or significant electrolyte abnormality. No concerning liver enzyme elevation. COVID test returned negative. Renal ultrasound did not show any significant hydronephrosis. On exam, the patient was not febrile, she was tender with percussion to both flanks. The patient presents with ongoing symptoms of pyelonephritis. She has failed outpatient treatment. She has grown Proteus which was shown to be resistant to Bactrim and she had been taking Bactrim. She recently was switched to Augmentin which theoretically should be adequate coverage however, she is not improved. Patient received IV saline, she was given IV Zofran for nausea. She was given IV ceftriaxone as antibiotic coverage. As per her last culture, the ceftriaxone should be appropriate. The patient was given IV Phenergan for additional nausea control. I did speak with the patient and case management, the on-call hospitalist was consulted. DISPOSITION: Based on the patient's presentation and findings, I believe hospital admission is warranted/appropriate. Past Med/Surg History Medical History Acute right flank pain History of exstrophy of bladder Recurrent UTI Social History Smoking Status: Never smoker Second Hand Exposure: No; Hx Alcohol Use: No Hx Substance Use: No Preferred Language: Pashto Communication Ability: Effective Flight Attendant/Inflight Manager Required: No Beliefs That Will Affect Care: None Current Living Situation: Other Current Living Situation Comment: Apartment with roomate. Feels Safe at Home: Yes Assistive Devices: None Allergies Allergies Allergy/AdvReac Type Severity Reaction Status Date / Time nitrofurantoin Allergy Severe Anaphylaxis/THROAT Verified 07/09/22 17:35 [From Macrobid] SWELLED, HIVES ENDED UP IN ER. latex Allergy Intermediate Rash Verified 07/09/22 17:35 ciprofloxacin AdvReac Severe Numbness Verified 07/09/22 17:35 Home Meds Home Medications Medication Instructions Recorded Confirmed amoxicillin 875 mg-potassium 1 tab PO BID 07/09/22 07/09/22 clavulanate 125 mg tablet ascorbic acid (vitamin C) 1,000 mg 1 g PO QAM 07/09/22 07/09/22 tablet (Vitamin C) duloxetine 60 mg capsule,delayed 60 mg PO QAM 07/09/22 07/09/22 release etonogestrel 0.12 mg-ethinyl 1 vag ring vaginal DIRECTED 07/09/22 07/09/22 estradiol 0.015 mg/24 hr vaginal ring (NuvaRing) lamotrigine 150 mg tablet 150 mg PO BID 07/09/22 07/09/22 linaclotide 145 mcg capsule 145 mcg PO QAM 07/09/22 07/09/22 (Linzess) metoclopramide HCl 10 mg tablet 10 mg PO QID PRN ABD PAIN 07/09/22 07/09/22 pantoprazole 40 mg tablet,delayed 40 mg PO QAM 07/09/22 07/09/22 release Previous Rx's Medication Instructions Recorded ondansetron 4 mg disintegrating 4 mg PO Q6H PRN nausea and 02/11/21 tablet vomiting #15 tabs Results & Data (ED) Vital Signs Vital Signs - 24 hr 07/09/22 15:32 07/09/22 18:24 Temperature 37.0 C Temperature Source Temporal Artery Scan Pulse Rate 90 Pulse Rate [Right Finger] 70 Respiratory Rate 16 Blood Pressure 120/78 Blood Pressure [Right Arm] 109/71 Blood Pressure Mean 92 Blood Pressure Mean [Right Arm] 83 Pulse Oximetry 98 98 Oxygen Delivery Method Room Air Room Air Sepsis Recent Fever Within 48 Hours No Sepsis New/Unexplained Change in Mental Status No Sepsis Action Taken by Nursing No Action Required Home Medications Current Medication List: was personally reviewed by me Laboratory Data Attestation: I reviewed the patient's lab results. 07/09/22 16:15 07/09/22 16:15 Lab Results 07/09/22 07/09/22 Range/Units 16:15 16:15 WBC 5.03 (4.8-10.8) K/ul RBC 4.66 (4.20-5.40) M/uL Hgb 13.8 (12.0-16.0) g/dl Hct 41.1 (37.0-47.0) % MCV 88.2 (80.0-100.0) fL MCH 29.6 (25.0-34.0) pg MCHC 33.6 (32.0-36.0) g/dL RDW Std Deviation 39.6 (36.4-46.3) fL RDW Coeff of Juan M 12.3 (11.5-14.5) % Plt Count 338 (130-400) K/uL MPV 10.1 (9.4-12.4) fL Immature Gran % (Auto) 0.2 % Neut % (Auto) 42.5 % Lymph % (Auto) 46.5 % Hampton % (Auto) 7.2 % Eos % (Auto) 2.2 % Baso % (Auto) 1.4 % Neut # (Auto) 2.14 (1.40-6.50) K/uL Lymph # (Auto) 2.34 (1.2-3.4) K/uL Hampton # (Auto) 0.36 (0.11-0.59) K/uL Eos # (Auto) 0.11 (0-0.50) K/uL Baso # (Auto) 0.07 (0-0.2) K/uL Immature Gran # (Auto) 0.01 (0.01-0.20) K/uL Sodium 141 (136-145) mmol/L Potassium 4.1 (3.5-5.1) mmol/L Chloride 108 H (98-107) mmol/L Carbon Dioxide 27 (21-32) mmol/L Anion Gap 6 (3-11) BUN 13 (6-23) mg/dl Creatinine 0.74 (0.6-1.2) mg/dl Est Cr Clr Drug Dosing 119.3 ml/min Est GFR ( Amer) 132.4 ml/min Est GFR (Non-Af Amer) 114.2 ml/min BUN/Creatinine Ratio 17.6 (10-20) Glucose 71 (70-99(Fasting)) mg/dl Calcium 9.5 (8.5-10.1) mg/dl Total Bilirubin 0.3 (0.2-1.0) mg/dl AST 17 (13-39) U/L ALT 15 (7-52) U/L Alkaline Phosphatase 63 (34-104) U/L Total Protein 7.3 (6.0-8.3) gm/dl Albumin 4.5 (3.4-5.0) gm/dl Globulin 2.8 (2.5-4.0) gm/dl Albumin/Globulin Ratio 1.6 (0.9-2) Administered Medications Lamotrigine (Lamotrigine 100 Mg Tab) 150 mg PO BID ANNELIESE Stop: 08/08/22 22:29 Last Admin: 07/09/22 22:57 Dose: 150 mg Documented By: LRS Discontinued Medications Sodium Chloride (Nss 1000ml) 1,000 mls @ 999 mls/hr IV .Q1H1M ONE Stop: 07/09/22 17:57 Last Infusion: 07/09/22 19:41 Dose: 0 mls/hr Documented By: Admin: 07/09/22 18:15 Dose: 999 mls/hr Documented By: MES Ceftriaxone Sodium (Rocephin) 2,000 mg in 70 mls @ 140 mls/hr IV NOW STA Stop: 07/09/22 17:26 Last Infusion: 07/09/22 19:12 Dose: 0 mls/hr Documented By: Admin: 07/09/22 18:15 Dose: 140 mls/hr Documented By: MES Promethazine HCl (Phenergan) 6.25 mg in 50.25 mls @ 201 mls/hr IV NOW STA Stop: 07/09/22 18:18 Last Infusion: 07/09/22 18:34 Dose: 0 mls/hr Documented By: Admin: 07/09/22 18:15 Dose: 201 mls/hr Documented By: MES Ondansetron HCl (Ondansetron Inj 2 Mg/Ml 2 Ml Vial) 4 mg IV NOW STA Stop: 07/09/22 18:05 Last Admin: 07/09/22 18:15 Dose: 4 mg Documented By: MES Imaging Data Radiologist's Impression: Renal Ultrasound 07/09/22 16:57 RENAL ULTRASOUND HISTORY: Flank pain. poss hydro, pyelonephritis COMPARISON: Abdomen and pelvis CT 02/11/2021. FINDINGS: Right kidney: 11.7 cm. No hydronephrosis. Normal corticomedullary differentiat ion and cortical thickness. Left kidney: 11.3 cm. No hydronephrosis. Normal corticomedullary differentiation and cortical thickness. Bladder: No bladder wall thickening. The bilateral ureteral jets were identified. Trace debris layering posteriorly. IMPRESSION: 1. No hydronephrosis. 2. No bladder wall thickening. 3. Trace debris within the bladder posteriorly. ACT 112: Negative or not required by law. Electronically signed by: Rafiq Covarrubias M.D. 07/09/2022 8:15 PM Discharge Plan Visit Data Chief Complaint: Referred by Doctor Stated Complaint: REF BY DOC FOR IV TREATMENT ED Provider: Cruz Murrell Discharge Problem: Bilateral flank pain, Pyelonephritis, Failure of outpatient treatment Patient Disposition: Admitted As Inpatient Condition: Good Discharge Instructions Interventions: ED Discharge Assessment Last Done: 07/09/22 21:51
[2022-07-09 17:28] LABS: Albumin Level 4.5 gm/dl (3.4-5.0); Bilirubin,Total 0.3 mg/dl (0.2-1.0); Calcium 9.5 mg/dl (8.5-10.1); Potassium 4.1 mmol/L (3.5-5.1)
[2022-07-09 17:34] LABS: Albumin Globulin Ratio 1.6 (0.9-2); BUN Creatinine Ratio 17.6 (10-20); Creatinine Clr Calc Pharmacy 119.3 ml/min; Est GFR (African American) 132.4 ml/min; Est GFR (Non-African American) 114.2 ml/min; Globulin 2.8 gm/dl (2.5-4.0); Total Protein 7.3 gm/dl (6.0-8.3)
[2022-07-09] MEDS ORDERED: PROMETHAZINE 6.25 MG/50.25 ML BAG IV STA (18:04)
[2022-07-09] MEDS ORDERED: ONDANSETRON INJ 2 MG/ML 2 ML VIAL IV STA (18:04)
--- NOTE | 2022-07-09 18:18 | History & Physical Report ---
Date of Service July 09, 2022 Assessment & Plan (1) Pyelonephritis: Plan: -Admit to med/surge -The patient is currently afebrile, hemodynamically stable and stable on RA -Patient's most recent urine cultures are growing bactrim resistant Proteus , sensitive to ceftriaxone -Will continue with Ceftriaxone for now -S/P 1L NSS in the ED, patient is able to eat and drink, will hold additional IV fluids at this time -AM CBC and CMP (2) Diarrhea: Plan: -Will obtain stool studies, including c. diff due to her diarrhea and multiple recent abx -Continue to hold Linzess (3) Anxiety: Plan: -Continue duloxetine (4) Seizure-like activity: Plan: -Continue Lamotrigine Plan The patient was discussed with Dr. Diop at the time of the admission History of Present Illness Chief Complaint: Referred by Doctor Primary Care Provider: [facility] Miko is a 22 -year-old female with a past medical history including bladder exstrophy, recurrent urinary tract infections, and anxiety who presented to the [facility] ED on 07/09/22 after being found to have a urine culture from her ED visit on 07/02/22 growing bactrim resistant Proteus mirabilis. In the Ed the patient was found to be afebrile, hemodynamically stable, and stable on RA. Labs were remarkable for (CBC is pending due to lab issues), stable Cr at 0.74, stable electrolytes, LFT's WNL . Prior to admission the patient was given one dose of ceftriaxone, 1L NSS, 4 mg Iv zofran, and one dose of Compazine. At the time of the exam the patient was resting comfortably in bed in no acute distress with her fiance sitting bedside. She states that at the beginning of the month she started to develop BL flank pain consistent to symptoms she gets when she has a UTI/pyelo. She went to [facility] who obtained a urine culture and started her on Bactrim. Her urine culture at that showed an infection sensitive to bactrim. She completed her course of abx and her symptoms initially resolved. Approximately 3 days later the patient started to develop symptoms again and went back to [facility] who advised her to go to the ED but the patient wanted to start another trial of abx prior. She was started again on Bactrim and her symptoms initially improved but then worsened. She was experiencing BL flank pain with Left worse than right, fever, chills, nausea, generalized abdominal pain and multiple episodes (>3) of non-bloody diarrhea daily. She was seen in the [facility] ED on 07/02/22 for the same symptoms and a new UA and urine cultures were obtained. She was given one dose of Cefepime and continued on the Bactrim. Her culture grew Bactrim resistant Porteous and she was called to come back to the ED. Of note, the patient states that she started developing diarrhea approximately 3-4 days ago. She is normally on Linzess for constipation but stopped taking it 48 hours ago and her diarrhea has continued. She has been having some generalized abdominal pain and nausea but no vomiting. Please refer to Dr. Diop's attestation for any changes to the treatment plan Allergies Allergy/AdvReac Type Severity Reaction Status Date / Time nitrofurantoin Allergy Severe Anaphylaxis/THROAT Verified 07/09/22 17:35 [From Macrobid] SWELLED, HIVES ENDED UP IN ER. latex Allergy Intermediate Rash Verified 07/09/22 17:35 ciprofloxacin AdvReac Severe Numbness Verified 07/09/22 17:35 Home Medications Medication Instructions Recorded Confirmed Type ondansetron 4 mg disintegrating 4 mg PO Q6H PRN nausea and 02/11/21 07/09/22 Rx tablet vomiting #15 tabs amoxicillin 875 mg-potassium 1 tab PO BID 07/09/22 07/09/22 History clavulanate 125 mg tablet ascorbic acid (vitamin C) 1,000 mg 1 g PO QAM 07/09/22 07/09/22 History tablet (Vitamin C) duloxetine 60 mg capsule,delayed 60 mg PO QAM 07/09/22 07/09/22 History release etonogestrel 0.12 mg-ethinyl 1 vag ring vaginal DIRECTED 07/09/22 07/09/22 History estradiol 0.015 mg/24 hr vaginal ring (NuvaRing) lamotrigine 150 mg tablet 150 mg PO BID 07/09/22 07/09/22 History linaclotide 145 mcg capsule 145 mcg PO QAM 07/09/22 07/09/22 History (Linzess) metoclopramide HCl 10 mg tablet 10 mg PO QID PRN ABD PAIN 07/09/22 07/09/22 History pantoprazole 40 mg tablet,delayed 40 mg PO QAM 07/09/22 07/09/22 History release oxybutynin chloride 5 mg tablet 5 mg PO QAM PRN Bladder Spasms 07/10/22 07/10/22 History Past Med/Surg History Medical History Acute right flank pain History of exstrophy of bladder Recurrent UTI Social History Smoking Status: Never smoker Second Hand Exposure: No; Hx Alcohol Use: No Hx Substance Use: No Preferred Language: Uzbek Communication Ability: Effective Gas And Oil Servicer Required: No Beliefs That Will Affect Care: None Current Living Situation: Other Current Living Situation Comment: Apartment with roomate. Feels Safe at Home: Yes Assistive Devices: None Review of Systems Review of Systems: Denies current headache, changes in vision, hearing, taste, and smell, chest pain, SOB, cough, vomiting, hematemesis, melena, hematuria, and recent falls. All systems have been reviewed and are otherwise negative. Physical Exam Physical Exam: Physical Exam: General: In no acute distress, stated age, well-nourished, good hygiene, non- toxic appearing HEENT: Normocephalic, atraumatic, no scleral icterus, pupils around round, symmetrical, and reactive to light, moist mucus membranes, trachea midline, no thyromegaly Chest/Pulm: No respiratory distress, symmetrical chest expansion, clear breath sounds throughout Cardiac: RRR, no murmurs noted Abdomen: Negative for ascites and bruising, normoactive bowel sounds, soft, non-tender to palpation throughout : + BL CVA tenderness with left > Right Musculoskeletal: Symmetrical and without signs of acute trauma, upper and lower extremities with full ROM, no atrophy, spasticity, or flaccidity Extremities: Radial, dorsalis pedis, and posterior tibial pulses are intact and symmetrical, no edema noted in the BL LE's Skin: Warm, dry, no rashes , lesions, or scars noted Neuro: Alert and oriented to person, place, month, year, and president, no focal defects Psych: No acute distress, calm and cooperative during the exam Results & Data Results & Data ([facility]) Vital Signs (Past 12 Hours) Vital Signs Temp Pulse Resp BP Pulse Ox O2 Del Method 07/09/22 15:32 37.0 C 90 16 120/78 98 Room Air Laboratory Results Abnormal lab results 07/09/22 07/09/22 Range/Units 16:15 20:05 Chloride 108 H 108 H (98-107) mmol/L Glucose 113 H (70-99(Fasting)) mg/dl Globulin 2.4 L (2.5-4.0) gm/dl Diagnostic Findings Renal Ultrasound 07/09/22 16:57 RENAL ULTRASOUND HISTORY: Flank pain. poss hydro, pyelonephritis COMPARISON: Abdomen and pelvis CT 02/11/2021. FINDINGS: Right kidney: 11.7 cm. No hydronephrosis. Normal corticomedullary differentiation and cortical thickness. Left kidney: 11.3 cm. No hydronephrosis. Normal corticomedullary differentiation and cortical thickness. Bladder: No bladder wall thickening. The bilateral ureteral jets were identified. Trace debris layering posteriorly. IMPRESSION: 1. No hydronephrosis. 2. No bladder wall thickening. 3. Trace debris within the bladder posteriorly. ACT 112: Negative or not required by law. Electronically signed by: Rafiq Covarrubias M.D. 07/09/2022 8:15 PM ECG Additional Comments: Will obtain ECG on admission Code Status & VTE Plan Code Status Full code VTE Prophylaxis Plan VTE Prophylaxis will be ordered: Yes Supervising Physician Co-Signing Physician Notes I personally saw and examined the patient. I verified all maciel points and agree with Elan Phelps PA-C with the following exceptions and/or additions: 22-year-old female with bladder exstrophy surgery as a child. Presents with her usual urinary symptoms following initial improvement in symptoms on Bactrim but subsequent culture grew Proteus resistant to Bactrim and subsequently switched to Augmentin with return of symptoms and antibiotic-associated diarrhea. Reports symptoms similar to previous infections. O/E non septic appearing, A&Ox3, HS 1+2, RRR, no murmurs, Chest CTAB, Abdo, mild generalized (worse in suprapubic region) tenderness without guarding or rebound, b/l CVA tenderness (worse on left) A/P Acute pyelonephritis - suspect cause is proteus previously on urine culture. Agree with switch to ceftriaxone. Repeat UA pending. PG Care Time/CCT Total # of Minutes Spent Total Time Spent with Patient: Total time spent is greater than 50% in coordination of care (as documented) at patient's floor/unit and/or counseling patient: [place] [address] INT INP/OBS CARE 2MIN Patient Type Established Medical Decision Making High Complexity Diagnoses Pyelonephritis N12 Diarrhea R19.7 Anxiety F41.9 Seizure-like activity R56.9
[2022-07-09 18:46] LABS: Basophils # (auto) 0.07 K/uL (0-0.2); Basophils % (auto) 1.4 %; Eosinophils # (auto) 0.11 K/uL (0-0.50); Eosinophils % (auto) 2.2 %; Hematocrit (blood only) 41.1 % (37.0-47.0); Hemoglobin 13.8 g/dl (12.0-16.0); Immature Granulocytes # (auto) 0.01 K/uL (0.01-0.20); Immature Granulocytes % (auto) 0.2 %; Lymphocytes # (auto) 2.34 K/uL (1.2-3.4); Lymphocytes % (auto) 46.5 %; Mean Corpuscular Hemoglobin 29.6 pg (25.0-34.0); Mean Corpuscular Hgb Conc 33.6 g/dL (32.0-36.0); Mean Corpuscular Volume 88.2 fL (80.0-100.0); Mean Platelet Volume 10.1 fL (9.4-12.4); Monocytes # (auto) 0.36 K/uL (0.11-0.59); Monocytes % (auto) 7.2 %; Neutrophils # (auto) 2.14 K/uL (1.40-6.50); Neutrophils % (auto) 42.5 %; Platelet Count 338 K/uL (130-400); RDW Coefficient of Variation 12.3 % (11.5-14.5); RDW Standard Deviation 39.6 fL (36.4-46.3); Red Blood Count 4.66 M/uL (4.20-5.40); White Blood Count 5.03 K/ul (4.8-10.8)
--- NOTE | 2022-07-09 20:17 | Ultrasound Report ---
RENAL ULTRASOUND HISTORY: Flank pain. poss hydro, pyelonephritis COMPARISON: Abdomen and pelvis CT 02/11/2021. FINDINGS: Right kidney: 11.7 cm. No hydronephrosis. Normal corticomedullary differentiation and cortical thickn ess. Left kidney: 11.3 cm. No hydronephrosis. Normal corticomedullary differentiation and cortical thickne ss. Bladder: No bladder wall thickening. The bilateral ureteral jets were identified. Trace debris layeri ng posteriorly. IMPRESSION: 1. No hydronephrosis. 2. No bladder wall thickening. 3. Trace debris within the bladder posteriorly. ACT 112: Negative or not required by law. Electronically signed by: Rafiq Covarrubias M.D. 07/09/2022 8:15 PM
[2022-07-09 20:34] LABS: Albumin Level 4.1 gm/dl (3.4-5.0); Bilirubin,Total 0.3 mg/dl (0.2-1.0); Calcium 8.7 mg/dl (8.5-10.1); Potassium 3.5 mmol/L (3.5-5.1)
[2022-07-09 20:40] LABS: Albumin Globulin Ratio 1.7 (0.9-2); BUN Creatinine Ratio 15.9 (10-20); Creatinine Clr Calc Pharmacy 127.9 ml/min; Est GFR (African American) 142.2 ml/min; Est GFR (Non-African American) 122.7 ml/min; Globulin 2.4 gm/dl (2.5-4.0); Total Protein 6.5 gm/dl (6.0-8.3)
[2022-07-09] MEDS ORDERED: ONDANSETRON INJ 2 MG/ML 2 ML VIAL IV PRN (22:10)
[2022-07-09] MEDS ORDERED: ACETAMINOPHEN 325 MG TAB PO PRN (22:20)
[2022-07-09] MEDS: lamoTRIgine 100 MG TAB PO SCH (22:57)
[2022-07-10] MEDS ORDERED: ONDANSETRON 4 MG OD TAB PO PRN (00:20)
[2022-07-10] MEDS ORDERED: OXYBUTYNIN CHLORIDE 5 MG TAB PO STA (04:16)
[2022-07-10] MEDS: IBUPROFEN 600 MG TAB PO SCH ×2 (04:34→13:24)
[2022-07-10 07:54] LABS: Appearance Urine Clear (Clear); Bilirubin Urine Negative (Negative); Blood Urine Negative (Negative); Color Urine Yellow; Glucose Urine UA Negative (Negative); Ketones Urine Negative (Negative); Leukocyte Esterase Urine Negative (Negative); Nitrite Urine Negative (Negative); Protein Urine Negative (Negative); Specific Gravity Urine 1.018 (1.000-1.030); Urobilinogen Urine Negative (Negative); pH Urine 6.5 (4.5-7.5)
[2022-07-10] MEDS: lamoTRIgine 100 MG TAB PO SCH (08:51)
[2022-07-10] MEDS ORDERED: DULoxetine HCL 60 MG CAP PO SCH (09:00)
[2022-07-10] MEDS ORDERED: DULoxetine HCL 20 MG CAP PO SCH ×2 (09:00→21:00)
[2022-07-10] MEDS ORDERED: PANTOprazole 40 MG TAB PO SCH (09:00)
[2022-07-10] MEDS ORDERED: OXYBUTYNIN CHLORIDE 5 MG TAB PO SCH (09:00)
[2022-07-10 09:43] LABS: Hematocrit (blood only) 34.8 % (37.0-47.0); Hemoglobin 11.6 g/dl (12.0-16.0); Mean Corpuscular Hemoglobin 29.7 pg (25.0-34.0); Mean Corpuscular Hgb Conc 33.3 g/dL (32.0-36.0); Mean Platelet Volume 9.8 fL (9.4-12.4); Platelet Count 286 K/uL (130-400); RDW Coefficient of Variation 12.3 % (11.5-14.5); RDW Standard Deviation 39.8 fL (36.4-46.3); Red Blood Count 3.91 M/uL (4.20-5.40); White Blood Count 7.61 K/ul (4.8-10.8)
[2022-07-10 10:17] LABS: Albumin Level 3.7 gm/dl (3.4-5.0); Bilirubin,Total 0.3 mg/dl (0.2-1.0); Calcium 8.5 mg/dl (8.5-10.1); Potassium 4.1 mmol/L (3.5-5.1)
[2022-07-10] MEDS: PHENAZOPYRIDINE HCL 200 MG TAB PO SCH ×2 (10:19→13:24)
[2022-07-10 10:27] LABS: Albumin Globulin Ratio 1.8 (0.9-2); BUN Creatinine Ratio 13.9 (10-20); Creatinine Clr Calc Pharmacy 122.6 ml/min; Est GFR (African American) 136.8 ml/min; Globulin 2.1 gm/dl (2.5-4.0); Total Protein 5.8 gm/dl (6.0-8.3)
[2022-07-10] MEDS ORDERED: OPTIRAY 350 100ml IV ONE (11:06)
--- NOTE | 2022-07-10 11:51 | CT Scan Report ---
CT abdomen w IV con HISTORY: 22 years-old Female UTI, rule out pyelonephritis acute lateral flank pain with urinary trac t infection COMPARISON: 02/11/2021 TECHNIQUE: Multiple axial CT images of the abdomen were obtained following the intravenous ministrati on of 90 mL Optiray 350. A dose lowering technique was used consistent with the principals of KANE. FINDINGS: Clear lung bases. No pneumatosis or pneumoperitoneum. Unremarkable spleen, pancreas and adrenal gland s. Mildly contracted gallbladder. The liver is within normal limits. Patency of the hepatic and bony l veins. Unremarkable kidneys. No renal calculi, hydronephrosis or perinephric stranding identified. Mild linear areas of suggested scarring within the right kidney, notably the superior pole. Aorta and IVC are unremarkable. No lymphadenopathy. No bowel obstruction or bowel wall thickening. Mild to moderate colonic fecal retention. Unremarkable soft tissues. No acute fracture. IMPRESSION: 1. No acute intra-abdominal abnormality. 2. No hydronephrosis or CT evidence of pyelonephritis. ACT 112: Negative or not required by law. The above report was generated using voice recognition software. It may contain grammatical, syntax o r spelling errors. Electronically signed by: Mendel Roy M.D. 07/10/2022 11:49 AM
--- NOTE | 2022-07-10 12:22 | Discharge Summary ---
Date of Service July 10, 2022 Admission HPI Per Admitting Provider Miko is a 22 -year-old female with a past medical history including bladder exstrophy, recurrent urinary tract infections, and anxiety who presented to the [facility] ED on 07/09/22 after being found to have a urine culture from her ED visit on 07/02/22 growing bactrim resistant Proteus mirabilis. In the Ed the patient was found to be afebrile, hemodynamically stable, and stable on RA. Labs were remarkable for (CBC is pending due to lab issues), stable Cr at 0.74, stable electrolytes, LFT's WNL . Prior to admission the patient was given one dose of ceftriaxone, 1L NSS, 4 mg Iv zofran, and one dose of Compazine. At the time of the exam the patient was resting comfortably in bed in no acute distress with her fiance sitting bedside. She states that at the beginning of the month she started to develop BL flank pain consistent to symptoms she gets when she has a UTI/pyelo. She went to [facility] who obtained a urine culture and started her on Bactrim. Her urine culture at that showed an infection sensitive to bactrim. She completed her course of abx and her symptoms initially resolved. Approximately 3 days later the patient started to develop symptoms again and went back to [facility] who advised her to go to the ED but the patient wanted to start another trial of abx prior. She was started again on Bactrim and her symptoms initially improved but then worsened. She was experiencing BL flank pain with Left worse than right, fever, chills, nausea, generalized abdominal pain and multiple episodes (>3) of non-bloody diarrhea daily. She was seen in the [facility] ED on 07/02/22 for the same symptoms and a new UA and urine cultures were obtained. She was given one dose of Cefepime and continued on the Bactrim. Her culture grew Bactrim resistant Port[place] and she was called to come back to the ED. Of note, the patient states that she started developing diarrhea approximately 3-4 days ago. She is normally on Linzess for constipation but stopped taking it 48 hours ago and her diarrhea has continued. She has been having some generalized abdominal pain and nausea but no vomiting. Please refer to Dr. Diop's attestation for any changes to the treatment plan Principal Diagnosis Proteus urinary tract infection, noninfectious diarrhea Discharge Exam General-alert and oriented x3, no fevers, no chills HEENT-head atraumatic and normocephalic, pupils equal and reactive to light, extraocular muscles intact Neck-no lymphadenopathy or thyromegaly, trachea midline Chest-clear to auscultation percussion. No rales wheezing or rhonchi Cardiac-regular rate and rhythm, normal S1 and S2, no murmurs Abdomen-normal bowel sounds, nontender, no hepatosplenomegaly Extremities-no cyanosis, clubbing, or edema Neuro-cranial nerves II through XII intact, motor and sensory function within normal limits, strength symmetrical , no focal deficits Psych-normal affect, normal mood Discharge Data Allergies Allergy/AdvReac Type Severity Reaction Status Date / Time nitrofurantoin Allergy Severe Anaphylaxis/THROAT Verified 07/09/22 17:35 [From Macrobid] SWELLED, HIVES ENDED UP IN ER. latex Allergy Intermediate Rash Verified 07/09/22 17:35 ciprofloxacin AdvReac Severe Numbness Verified 07/09/22 17:35 Consultations 07/09/22 17:17 ED Decision to Admit Stat Ordered Studies 07/09/22 16:57 US Renal Bladder [US renal/blad retro comp] Stat 07/10/22 09:03 CT abdomen w IV con Urgent Hospital Course (1) Pyelonephritis: Ruled out with renal ultrasound and abdominal CT scan. This appears to be an uncomplicated UTI. She currently is asymptomatic except for dysuria. Pyridium has been started. She will be discharged home on oral cephalexin to treat the known Proteus infection. (2) Diarrhea: Appears to be noninfectious. Linzess is on hold while bowels are loose. (3) Anxiety: Treated with duloxetine (4) Seizure-like activity: Controlled with Lamotrigine Plan Discharge home today, July 10, on oral cephalexin and Pyridium Total Time Total Time Spent Total Time Spent (In Minutes): 35 minutes Discharge Plan Discharge Items Patient Disposition: Home - Self-Care Reason For Visit: RECURRENT UTI Discharge Diagnosis: Uncomplicated UTI, noninfectious diarrhea Condition on Discharge: Good Activity: Resume your previous activity Non-emergency contact: Primary Care Provider Call non-emergency contact if: you have any medication questions Follow-up/Referrals: [place] [Primary Care Provider] - Diet: Regular Addtl Attending Provider Instructions: Take Pyridium for 2 days. Take oral antibiotic for 5 days. Pending Studies at Discharge: No Stand-Alone Forms: My [employer], Smoking Cessation Medications and DC Order Prescriptions: New phenazopyridine [Pyridium] 200 mg Tablet 200 mg PO TID Qty: 5 0RF cephalexin 250 mg capsule 250 mg PO TID Qty: 15 0RF Continued ondansetron 4 mg tablet,disintegrating 4 mg PO Q6H PRN (Reason: nausea and vomiting) Qty: 15 0RF lamotrigine 150 mg tablet 150 mg PO BID ascorbic acid (vitamin C) [Vitamin C] 1,000 mg Tablet 1 g PO QAM pantoprazole 40 mg tablet,delayed release (DR/EC) 40 mg PO QAM metoclopramide HCl 10 mg tablet 10 mg PO QID PRN (Reason: ABD PAIN) etonogestrel-ethinyl estradiol [NuvaRing] 0.12-0.015 mg/24 hr ring 1 vag ring VAGINAL DIRECTED duloxetine 60 mg capsule,delayed release(DR/EC) 60 mg PO QAM Rx Instructions: TOTAL DOSE 80 MG--TAKES WITH 20 MG CAP. Linzess 145 mcg capsule 145 mcg PO QAM oxybutynin chloride 5 mg Tablet 5 mg PO QAM PRN (Reason: Bladder Spasms) Discontinued amoxicillin-pot clavulanate 875-125 mg tablet 1 tab PO BID Rx Instructions: STARTED 07/03/22 FOR 10 DAYS. Discharge Orders: Discharge Order (Routine); Ordered 07/10/22 Ordered By: Robby Griffith Admission Data Admit Date/Time: 07/09/22 18:55 Attending Provider: Robby Griffith Admit Provider: Apolinar Diop Primary Care Provider: [facility] Other Providers: Apolinar Diop Coding Level of Care Code HOSP INP/OBS DISCH >30 MIN Diagnoses Pyelonephritis N12 Diarrhea R19.7 Anxiety F41.9 Seizure-like activity R56.9
--- NOTE | 2022-07-10 15:14 | Electrocardiogram Report ---
Test Reason : Blood Pressure : / mmHG Vent. Rate : 079 BPM Atrial Rate : 079 BPM P-R Int : 128 ms QRS Dur : 084 ms QT Int : 378 ms P-R-T Axes : 027 058 027 degrees QTc Int : 433 ms Normal sinus rhythm Normal ECG When compared with ECG of 29-AUG-2021 19:14, No significant change was found Confirmed by Ramon Cardenas ([id number]) on 07/10/2022 3:14:39 PM Referred By: [facility] Confirmed By:Tarun Cardenas
[2022-07-10] MEDS ORDERED: cefTRIAXone SODIUM 1,000 MG in DEXTROSE 5% AD-VAN 50 ML IV SCH (18:00)
== END 2022-07-10 14:18 | disposition home or self-care (01) | DRG 690 ==
LOC: ED 15:29 → SUATTDRO 18:55 → EDINP 18:55 → 3W 21:51